=== PATIENT | female | born 1980 | race Caucasian/White ===

== ENCOUNTER 2017-10-22 12:51 | Outpatient (CLI) | payer OTHER | END 2017-10-22 12:52 | disposition home or self-care (01) | LOC: NS 12:51 | PROVIDERS: ATTEND Physician Assistant Medical | DX: Z71.3 Dietary counseling and surveillance (principal); R63.5 Abnormal weight gain; Z68.34 Body mass index [BMI] 34.0-34.9, adult | CPT/HCPCS: 97802 ==

== ENCOUNTER 2017-11-12 10:52 | Outpatient (CLI) | payer OTHER | END 2017-11-12 10:53 | disposition home or self-care (01) | LOC: NS 10:52 | PROVIDERS: ATTEND Physician Assistant Medical | DX: Z71.3 Dietary counseling and surveillance (principal); R63.5 Abnormal weight gain; Z68.34 Body mass index [BMI] 34.0-34.9, adult | CPT/HCPCS: 97803 ==

== ENCOUNTER 2019-03-15 14:41 | Outpatient (CLI) | payer OTHER ==
[2019-03-15 18:26] LABS: BASOPHILS % (AUTO) 0.3 %; EOSINOPHILS # (AUTO) 0.2 10^3/uL (0.0-0.7); EOSINOPHILS % (AUTO) 2.9 %; HGB - HEMOGLOBIN 13.6 g/dL (12.0-16.0); LYMPHOCYTES % (AUTO) 34.1 %; MEAN CORPUSCULAR HGB CONC 32.6 g/dL (32.0-36.0); MEAN CORPUSCULAR VOLUME 91.9 fL (81.0-99.0); MEAN PLATELET VOLUME 10.9 fL (7.9-10.8); MONOCYTES # (AUTO) 0.5 10^3/uL (0.0-1.0); MONOCYTES % (AUTO) 8.7 %; NEUTROPHILS # (AUTO) 3.2 10^3/uL (1.5-6.6); NEUTROPHILS % (AUTO) 53.8 %; PLT - PLATELET COUNT 219 10^3/uL (130-450); RED BLOOD COUNT 4.54 10^6/uL (4.20-5.40); RED CELL DISTRIBUTION WIDTH 12.4 % (12.0-15.0); WHITE BLOOD COUNT 5.9 x10^3/uL (4.8-10.8)
[2019-03-15 19:20] LABS: CALCIUM 9.3 mg/dL (8.5-10.3)
== END 2019-03-15 23:59 | disposition home or self-care (01) ==
LOC: LAB.WCP 14:41
PROVIDERS: ATTEND Physician Assistant Medical
DX: N92.0 Excessive and frequent menstruation with regular cycle (principal)
CPT/HCPCS: 36415; 80048; 84443; 85025

== ENCOUNTER 2019-04-04 10:59 | Outpatient (CLI) | payer OTHER ==
--- NOTE | 2019-04-04 13:16 | Ultrasound Report ---
Reason: MENORRHAGIA Procedure Date: 04/04/2019 Accession Number: [id number] / [id number] Procedure: US - Pelvic w/Transvaginal CPT Code: Final Report FULL RESULT: EXAM: PELVIC ULTRASOUND EXAM DATE: 04/04/2019 12:14 PM. CLINICAL HISTORY: MENORRHAGIA. LMP: 03/18/2019. Family history of uterine and ovarian cancer. COMPARISON: 09/14/2014 . TECHNIQUE: Realtime transabdominal pelvic scan performed to identify the uterus and adnexa and as an overview of other pelvic structures, followed by transvaginal scan to provide greater detail of the uterus and adnexa, with static image documentation. FINDINGS: Uterus: 9.8 x 4.3 x 6.9 cm, volume 152.1 cc. Anteverted position. 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 Masses: None. Endometrium: 5.6 mm. Normal. Cervix: Unremarkable. Right Ovary: 3 x 2.7 x 2.4 cm, volume 10.2 cc. Normal echotexture and blood flow. Left Ovary: 2.3 x 1.7 x 1.4 cm, volume 2.9 cc. Normal echotexture and blood flow. Free Fluid: Small amount, likely physiological volume. Other: None. IMPRESSION: Negative pelvic ultrasound. RADIA
== END 2019-04-04 11:00 | disposition home or self-care (01) ==
LOC: DI 10:59
PROVIDERS: ATTEND Physician Assistant Medical
DX: N92.0 Excessive and frequent menstruation with regular cycle (principal)
CPT/HCPCS: 76830; 76856

== ENCOUNTER 2020-01-24 16:38 | Outpatient (CLI) | payer OTHER | END 2020-01-24 16:39 | disposition home or self-care (01) | LOC: COV 16:38 | PROVIDERS: ATTEND Family Medicine | DX: M79.10 Myalgia, unspecified site (principal); R53.83 Other fatigue; J34.89 Other specified disorders of nose and nasal sinuses; R43.8 Other disturbances of smell and taste; Z20.828 Contact with and (suspected) exposure to other viral communicable diseases ==

== ENCOUNTER 2020-05-14 15:44 | Outpatient (CLI) | payer OTHER ==
--- NOTE | 2020-05-15 12:51 | Mammography Report ---
BILATERAL DIGITAL SCREENING MAMMOGRAM 3D/2D: 05/14/2020 CLINICAL: Routine screening. No prior exams were available for comparison. The tissue of both breasts is heterogeneously dense. T his may lower the sensitivity of mammography. No significant masses, calcifications, or other findings are seen in either breast. IMPRESSION: NEGATIVE There is no mammographic evidence of malignancy. A 1 year screening mammogram is recommended. This exam was interpreted at Station ID: [id number]. NOTE: For mammograms, a report in lay terms will be sent to the patient. Approximately 15% of breast malignancies will not be visualized mammographically. In the management of a palpable breast mass, a negative mammogram must not discourage biopsy of a clinically suspicious lesion. Electronically Signed By: Erwin roca/shelia:05/14/2020 18:22:33 ACR BI-RADS Category 1: Negative 3341F PARENCHYMAL PATTERN: (D) - The breast(s) demonstrate(s) heterogeneously dense fibroglandular lacie yu. BI-RADS CATEGORY: (1) - 1 RECOMMENDATION: (ANNUAL) - Recommend routine annual screening mammography. [id number] 1 year screening LATERALITY: (B)
== END 2020-05-14 15:45 | disposition home or self-care (01) ==
LOC: DI.N 15:44
DX: Z12.31 Encounter for screening mammogram for malignant neoplasm of breast (principal)